=== PATIENT | female | born 1985 | race Two or more races ===

== ENCOUNTER 2019-11-09 13:40 | Outpatient (CLI) | payer BC, OTHER ==
[2019-11-09] MEDS ORDERED: METF500T17 PO (14:02)
[2019-11-09 14:33] LABS: BASOPHILS # (AUTO) 0.07 x10^3/uL (0-0.1); BASOPHILS % (AUTO) 1 % (0-1); EOSINOPHILS # (AUTO) 0.17 x10^3/uL (0-0.4); EOSINOPHILS % (AUTO) 3 % (1-7); LYMPHOCYTES # (AUTO) 2.06 x10^3/uL (1-3.4); LYMPHOCYTES % (AUTO) 32 % (22-44); MD NO; MEAN CORPUSCULAR HEMOGLOBIN 28.9 pg (27.0-34.8); MEAN CORPUSCULAR HGB CONC 32.8 g/dL (32.4-35.8); MEAN CORPUSCULAR VOLUME 88.3 fL (80-100); MEAN PLATELET VOLUME 7.8 fL (7.4-10.4); MONOCYTES # (AUTO) 0.35 x10^3/uL (0.2-0.8); MONOCYTES % (AUTO) 5 % (2-9); NEUTROPHILS # (AUTO) 3.84 x10^3/uL (1.8-6.8); NEUTROPHILS % (AUTO) 59 % (42-75); PLATELET COUNT 281 x10^3/uL (130-400); RED BLOOD COUNT 4.49 x10^6/uL (3.82-5.3)
== END 2019-11-09 23:59 | disposition home or self-care (01) ==
LOC: STAR 13:40
PROVIDERS: ATTEND Obstetrics & Gynecology
DX: Z01.812 Encounter for preprocedural laboratory examination (principal); N94.89 Other specified conditions associated with female genital organs and menstrual cycle
CPT/HCPCS: 36415; 84703; 85025

== ENCOUNTER → 2019-11-11 | Outpatient (CLI) | payer OTHER ==
[~2019-11-11] MED LIST: METF500T17 PO
== END | disposition home or self-care (01) ==
LOC: STAR 15:06
PROVIDERS: ATTEND Anesthesiology
DX: Z01.812 Encounter for preprocedural laboratory examination (principal); Z20.828 Contact with and (suspected) exposure to other viral communicable diseases
CPT/HCPCS: 36415; 87635

== ENCOUNTER 2019-11-16 13:34 | Day surgery (SDC) | payer BC, OTHER ==
[~2019-11-16] VITALS: Ht 157.5 cm; Wt 74.3 kg
[2019-11-16] MEDS ORDERED: BUPIVACAINE/PF 0.25% ONE (13:53)
[2019-11-16] MEDS ORDERED: EPINEPHRINE 1 MG/ML, 1ML ONE (13:53)
[2019-11-16] MEDS ORDERED: LACTATED RINGERS 1,000 ML IV SCH (13:56)
[2019-11-16] MEDS ORDERED: CHLORHEXIDINE 15 ML UDC MM ONE (14:00)
[2019-11-16 14:18] LABS: HCG UR SG 1.023 (1.003-1.030)
[2019-11-16] MEDS ORDERED: MIDAZOLAM 1 MG/ML, 2ML ONE (16:20)
[2019-11-16] MEDS ORDERED: ONDANSETRON 2MG/ML, 2ML ONE ×2 (16:21→18:38)
[2019-11-16] MEDS ORDERED: PROPOFOL 10 MG/ML, 20ML ONE (16:21)
[2019-11-16] MEDS ORDERED: CEFAZOLIN 1,000 MG ONE (16:21)
[2019-11-16] MEDS ORDERED: DEXAMETHASONE 4 MG/ML, 1ML ONE (16:21)
[2019-11-16] MEDS ORDERED: GLYCOPYRROLATE 0.2MG/1ML, 5ML ONE (16:21)
[2019-11-16] MEDS ORDERED: ROCURONIUM 10 MG/ML,10ML ONE (16:21)
[2019-11-16] MEDS ORDERED: NEOSTIGMINE 1 MG/ML, 10ML ONE (16:21)
[2019-11-16] MEDS ORDERED: FENTANYL PF 250 MCG/5ML ONE (16:45)
[2019-11-16] MEDS ORDERED: hydrALAzine 20 MG/ML, 1ML IV PRN (17:30)
[2019-11-16] MEDS ORDERED: DIPHENHYDRAMINE 50 MG/ML, 1ML IVPush PRN (17:30)
[2019-11-16] MEDS ORDERED: PROMETHAZINE 25 MG/ML, 1ML IVPush PRN (17:30)
[2019-11-16] MEDS ORDERED: MEPERIDINE/PF 25MG/0.5ML IVPush PRN (17:30)
[2019-11-16] MEDS ORDERED: LABETALOL 5MG/ML, 20ML IV PRN (17:30)
[2019-11-16] MEDS ORDERED: DIAZEPAM 5 MG/ML, 2ML IVPush PRN (17:30)
[2019-11-16] MEDS ORDERED: ONDANSETRON 2MG/ML, 2ML IVPush PRN (17:30)
[2019-11-16] MEDS ORDERED: ACETAMINOPHEN 325 MG TABLET PO PRN (17:30)
[2019-11-16] MEDS ORDERED: OXYcodone 5 MG/5 ML ORAL.SOL UDC PO PRN (17:30)
[2019-11-16] MEDS ORDERED: FENTANYL PF 100 MCG/2ML ONE (18:21)
[2019-11-16] MEDS ORDERED: OXYcodone 5 MG/5 ML ORAL.SOL UDC ONE (18:21)
[2019-11-16] MEDS: FENTANYL PF 100 MCG/2ML IV PRN ×2 (18:24→18:30)
[2019-11-16] MEDS ORDERED: MEPERIDINE/PF 25MG/ML,1ML ONE (18:30)
[2019-11-16] MEDS ORDERED: HYDROmorphone 1 MG/ML, 1ML INJ ONE (18:50)
[2019-11-16] MEDS: HYDROmorphone 1 MG/ML, 1ML INJ IVPush PRN ×2 (18:51→19:20)
[2019-11-16] MEDS ORDERED: OXYC-302 PO (20:21)
[2019-11-16] MEDS ORDERED: IBUP-1222 PO (20:22)
[2019-11-16] MEDS ORDERED: DOCU-131 PO (20:23)
== END 2019-11-16 22:10 | disposition home or self-care (01) ==
LOC: OR 13:34 → 4NE 19:35 → OR 22:10
PROVIDERS: ATTEND Obstetrics & Gynecology
DX: R19.09 Other intra-abdominal and pelvic swelling, mass and lump (principal); N94.6 Dysmenorrhea, unspecified; N80.1 Endometriosis of ovary; N80.2 Endometriosis of fallopian tube; N73.6 Female pelvic peritoneal adhesions (postinfective); E28.2 Polycystic ovarian syndrome; Z79.84 Long term (current) use of oral hypoglycemic drugs; Z88.8 Allergy status to other drugs, medicaments and biological substances
CPT/HCPCS: 36415; 58661; 58662; 81025; 86850; 86900; 88305; J0171; J0690; J1100; J1170; J2175; J2250; J2405; J2704; J2710; J3010; J3490; J7120; G0378